=== PATIENT | male | born 2000 | race African-American/Black ===

== ENCOUNTER 2024-08-21 12:32 | Emergency (ER) | payer OTHER ==
[~2024-08-21] VITALS: Ht 193 cm; Wt 106.6 kg
[~2024-08-21 12:32] MED LIST: KETOROLAC TROME10 MG PO; METHOCARBAMOL500 MG PO
[2024-08-21] MEDS ORDERED: LACTATED RINGER'S 1,000 ML INJ ONE (13:00)
[2024-08-21] MEDS ORDERED: FAMOTIDINE 20 MG/2 ML VIAL IV ONE (13:00)
[2024-08-21] MEDS ORDERED: KETOROLAC TROMETHAMINE 30 MG/ML VIAL IV ONE (13:00)
[2024-08-21] MEDS ORDERED: DEXAMETHASONE SOD PHOS INJ 4 MG/ML SDV IV ONE (13:00)
[2024-08-21] MEDS ORDERED: ONDANSETRON HCL INJ 2MG/ML 2ML 2 MG/ML VIAL IV ONE (13:00)
[2024-08-21] MEDS: ACETAMINOPHEN 325 MG TAB PO ONE ×2 (13:36→13:40)
[2024-08-21] MEDS: KETOROLAC TROMETHAMINE 30 MG/ML VIAL IM ONE (13:40)
[2024-08-21] MEDS: DEXAMETHASONE SOD PHOS INJ 4 MG/ML SDV IM ONE (13:40)
[2024-08-21] MEDS ORDERED: PREDNISONE20 MG PO (13:59)
[2024-08-21] MEDS ORDERED: IBU600 MG PO (13:59)
[2024-08-21 14:10] VITALS: PULSE 77; RESP 17; TEMP 98.3; O2SAT 99
== END 2024-08-21 14:10 | disposition home or self-care (01) ==
LOC: FSED 12:40
DX: M94.0 Chondrocostal junction syndrome [Tietze] (principal); R94.31 Abnormal electrocardiogram [ECG] [EKG]
CPT/HCPCS: 71046; 80053; 81003; 82553; 84484; 85025; 85379; 93005; 96372; 99284; J1100; J1885